=== PATIENT | female | born 2005 | race African-American/Black ===

== ENCOUNTER 2023-01-20 09:08 | Emergency (ER) | payer MEDICAID ==
[~2023-01-20] VITALS: Ht 162.6 cm; Wt 61.0 kg
[2023-01-20 09:19] VITALS: PULSE 80; RESP 16
[2023-01-20 09:22] VITALS: BP 127/93; TEMP 98.6; O2SAT 100
[2023-01-20 10:15] LABS: HEMATOCRIT. 36.6 % (36.0-48.0); MEAN CORPUSCULAR HEMOGLOBIN 29.3 pg (28.0-32.0); MEAN CORPUSCULAR HGB CONC 32.7 g/dL (31.0-37.0); MEAN CORPUSCULAR VOLUME 89.6 fL (81.0-99.0); MEAN PLATELET VOLUME 10.1 fl (7.4-10.4); PLATELET 208 x1000/uL (130-400); RED BLOOD CELL COUNT 4.09 mill/uL (4.2-5.4); WHITE BLOOD COUNT 14.3 x1000/uL (4.5-11.0)
[2023-01-20 10:19] LABS: DIFFERENTIAL COMMENT 1
[2023-01-20 10:27] LABS: ALANINE AMINOTRANSFERASE 9 IU/L (10-49); ALBUMIN 4.1 g/dL (3.2-4.8); ASPARTATE AMINOTRANSFERASE 11 IU/L (<34); BILIRUBIN TOTAL 0.8 mg/dL (0.1-1.0); CALCIUM 9.3 mg/dL (8.7-10.4); CARBON DIOXIDE 25 mEq/L (21-32); CHLORIDE 105 mEq/L (98-107); CREATININE 0.6 mg/dL (0.6-1.0); GLUCOSE 104 mg/dL (70-105); POTASSIUM 3.5 mEq/L (3.5-5.1); PROTEIN TOTAL 6.3 g/dL (6.0-8.3); SODIUM 139 mEq/L (136-145); UREA NITROGEN BLOOD 6 mg/dL (9-23)
[2023-01-20 10:59] LABS: PLATELET ESTIMATE NORMAL
[2023-01-20 12:37] LABS: CLARITY URINE CLEAR (CLEAR); COLOR URINE YELLOW (YELLOW); GLUCOSE URINE NEGATIVE (NEGATIVE); PH URINE 5.5 (4.5-8.0); PROTEIN URINE NEGATIVE (NEGATIVE)
[2023-01-20 12:38] LABS: KETONES URINE 3+ (NEGATIVE); LEUKOCYTE ESTERASE URINE NEGATIVE (NEGATIVE); NITRITE URINE NEGATIVE (NEGATIVE); OCCULT BLOOD URINE NEGATIVE (NEGATIVE); UROBILINOGEN URINE 0.2 E.U./dL (0.2-1.0)
== END 2023-01-20 13:04 | disposition left against medical advice (07) ==
LOC: ER 09:30
DX: E16.2 Hypoglycemia, unspecified (principal); Z53.21 Procedure and treatment not carried out due to patient leaving prior to being seen by health care provider
CPT/HCPCS: 36415; 80053; 81003; 81025; 82962; 85025; 93005; 99281; 99284